=== PATIENT | male | born 2000 | race Caucasian/White ===

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

== ENCOUNTER 2020-04-12 13:04 | Emergency (ER) | payer OTHER ==
[~2020-04-12] VITALS: Ht 177.8 cm; Wt 83.3 kg
[2020-04-12] MEDS ORDERED: LIDOCAINE W/EPINEPHRINE 1% 20ML VIAL SC ONE (13:45)
[2020-04-12] MEDS ORDERED: BOOSTRIX/ADACEL VACCINE (DIPHTH/PERTUSS/ACELL/TETANUS) 0.5ML SYR IM ONE (13:45)
[2020-04-12] MEDS ORDERED: BACITRACIN OINTMENT 30GM TUBE TOP STA (14:34)
[2020-04-12 15:00] VITALS: BP 148/85
== END 2020-04-12 14:57 | disposition home or self-care (01) ==
LOC: M ED 13:04
DX: S01.01XA Laceration without foreign body of scalp, initial encounter (principal); S06.0X0A Concussion without loss of consciousness, initial encounter; W22.8XXA Striking against or struck by other objects, initial encounter; Y92.59 Other trade areas as the place of occurrence of the external cause; Y93.89 Activity, other specified; Y99.0 Civilian activity done for income or pay; J45.909 Unspecified asthma, uncomplicated

== ENCOUNTER 2020-04-19 12:42 | Emergency (ER) | payer OTHER ==
[~2020-04-19] VITALS: Ht 177.8 cm; Wt 82.9 kg
[2020-04-19 12:42] VITALS: BP 134/61
== END 2020-04-19 13:32 | disposition home or self-care (01) ==
LOC: M ED 12:42
DX: Z48.02 Encounter for removal of sutures (principal)

== ENCOUNTER 2020-12-25 20:57 | Emergency (ER) | payer OTHER ==
[~2020-12-25] VITALS: Ht 177.8 cm; Wt 84.1 kg
[2020-12-26 01:09] VITALS: BP 129/56
[2020-12-26] MEDS ORDERED: LIDOCAINE W/EPINEPHRINE 1% 20ML VIAL SC ONE (02:15)
[2020-12-26] MEDS ORDERED: DERMABOND TOPICAL SKIN ADHESIVE TOP ONE (02:45)
== END 2020-12-26 03:20 | disposition home or self-care (01) ==
LOC: M ED 20:57
DX: S01.511A Laceration without foreign body of lip, initial encounter (principal); S01.21XA Laceration without foreign body of nose, initial encounter; V93.87XA Other injury due to other accident on board water-skis, initial encounter; Y92.9 Unspecified place or not applicable; Y93.17 Activity, water skiing and wake boarding; Y99.9 Unspecified external cause status; J45.909 Unspecified asthma, uncomplicated; Z88.0 Allergy status to penicillin